=== PATIENT | male | born 1965 | race Two or more races ===

== ENCOUNTER → 2016-12-09 17:38 | Emergency (ER) | payer OTHER ==
--- NOTE | 2016-12-09 21:22 | ED ---
Laceration/Wound HPI - HPI Summary HPI Summary: 51M presents with right wrist laceration today. He was walking through a store and a piece of glass fell and landed on his arm. His tetanus is up to date. He has full ROM of his wrist. He denies any foreign body in his wrist. - History of Current Complaint Stated Complaint: RT WRIST LAC Time Seen by Provider: 12/09/16 20:40 Pain Intensity: 0 - Allergy/Home Medications Allergies/Adverse Reactions: Allergies Allergy/AdvReac Type Severity Reaction Status Date / Time No Known Allergies Allergy Verified 12/09/16 17:44 PMH/Surg Hx/FS Hx/Imm Hx Endocrine/Hematology History: Denies: Hx Anticoagulant Therapy EENT History: Denies: Hx Hearing Problem Infectious Disease History: Denies: Traveled Outside the [place] in Last 30 Days - Family History Known Family History: Positive: Hypertension - Social History Alcohol Use: None Substance Use Type: Reports: None Smoking Status (MU): Never Smoked Tobacco Review of Systems Negative: Fever Negative: Chest Pain Negative: Shortness Of Breath Positive: Other - right wrist laceration All Other Systems Reviewed And Are Negative: Yes Physical Exam Triage Information Reviewed: Yes Vital Signs On Initial Exam: Initial Vitals Temp Pulse Resp BP Pulse Ox 97.8 F 107 17 178/81 100 12/09/16 17:42 12/09/16 17:42 12/09/16 17:42 12/09/16 17:42 12/09/16 17:42 Vital Signs Reviewed: Yes Appearance: Positive: Well-Appearing Skin: Positive: Warm, Dry, Other - 3cm laceration of palmar aspect right wrist Head/Face: Positive: Normal Head/Face Inspection Eyes: Positive: Normal, Conjunctiva Clear Respiratory/Lung Sounds: Positive: Clear to Auscultation, Breath Sounds Present Cardiovascular: Positive: Normal, RRR Procedures - Laceration/Wound Repair 1 Location: Other - right wrist Description: Linear Anesthesia: Local, 1.0%, Epi Length, Depth and Shape: 3cm Betadine Prep?: Yes Irrigated w/ Saline (ccs): 50 Laceration/Wound Explored: clean, no foreign body removed Closure: Single Layer Suture Type: Prolene - 4-0 Number of Sutures: 3 Diagnostics - Vital Signs Vital Signs Temp Pulse Resp BP Pulse Ox 12/09/16 18:50 98.5 F 74 17 167/72 100 12/09/16 17:42 97.8 F 107 17 178/81 100 - Laboratory Lab Statement: Any lab studies that have been ordered have been reviewed, and results considered in the medical decision making process. Laceration Repair Course/Dx - Course Course Of Treatment: 51M presents with laceration to right wrist. denies any foreign body, cleaned area and placed 3 sutures in area. patient understands and agrees with plan - Differential Dx Differental Diagnoses: Abrasion, Avulsion, Laceration - Clinical Impression Provider Diagnoses: Laceration of right wrist Discharge - Discharge Plan Condition: Good Disposition: HOME Patient Education Materials: Care For Your Stitches (ED) Referrals: Non Staff,Doctor [Primary Care Provider] - Additional Instructions: Take Tylenol or ibuprofen for pain Keep area clean and dry for 48 hours Return to ED or primary in 10-14 days to have sutures removed Return to ED if develop signs of infection such as fever, spreading redness, or pus. Images - Images Hands: 1 - 3cm
[2016-12-09 22:20] VITALS: BP 140/73
== END | disposition home or self-care (01) ==
LOC: ED 17:38
DX: S61.511A Laceration without foreign body of right wrist, initial encounter (principal); W25.XXXA Contact with sharp glass, initial encounter; Y93.9 Activity, unspecified; Y92.512 Supermarket, store or market as the place of occurrence of the external cause
CPT/HCPCS: 99282

== ENCOUNTER 2018-02-08 11:21 | Emergency (ER) | payer OTHER ==
[2018-02-08 11:40] VITALS: BP 140/95
[2018-02-08] MEDS ORDERED: Albuterol/Ipratropium NEB.SOL* Albuterol 2.5 MG/Ipratropium 0.5 MG 3 ML INH ONE (12:16)
--- NOTE | 2018-02-08 12:27 | UC ---
Respiratory Complaint HPI - HPI Summary HPI Summary: cough and wheeze worsening, no fever, got SOB easily while moving furniture this weekend, denies Chest pain, no pedal edema, patient reports similar episode in 09/2017 dx with MYCOPLASMA rx with albuterol and zithromax---- patient has not tried his inhaler with this episode of illness---last travel [facility] was about 6 weeks ago - History of Current Complaint Chief Complaint: UCRespiratory Stated Complaint: COUGH WHEEZING Time Seen by Provider: 02/08/18 12:08 Hx Obtained From: Patient Onset/Duration: Sudden Onset, Lasting Days - 3, Still Present Timing: Constant Pain Intensity: 5 Pain Scale Used: 0-10 Numeric Character: Cough: Nonproductive Aggravating Factors: Exertion Alleviating Factors: Nothing Associated Signs And Symptoms: Positive: Dyspnea, URI. Negative: Calf Pain, Calf Swelling, Edema, Nasal Congestion, Hoarseness, Sinus Discomfort - Allergies/Home Medications Allergies/Adverse Reactions: Allergies Allergy/AdvReac Type Severity Reaction Status Date / Time No Known Allergies Allergy Verified 02/08/18 11:40 PMH/Surg Hx/FS Hx/Imm Hx Previously Healthy: Yes Other History Of: Negative For: Anticoagulant Therapy - Surgical History Surgical History: None - Family History Known Family History: Positive: Hypertension - Social History Occupation: Works From/At Home Lives: With Family Alcohol Use: None Substance Use Type: None Smoking Status (MU): Never Smoked Tobacco Review of Systems Constitutional: Negative Skin: Negative Eyes: Negative ENT: Negative Respiratory: Shortness Of Breath, Cough, Other - wheeze Cardiovascular: Negative Gastrointestinal: Negative Genitourinary: Negative Motor: Negative Neurovascular: Negative Musculoskeletal: Negative Neurological: Negative Psychological: Negative Is Patient Immunocompromised?: No All Other Systems Reviewed And Are Negative: Yes Physical Exam Triage Information Reviewed: Yes Appearance: Well-Appearing, No Pain Distress, Well-Nourished Vital Signs: Initial Vital Signs Temp 97.7 F 02/08/18 11:36 Pulse 96 02/08/18 11:36 Resp 16 02/08/18 11:36 BP 140/95 02/08/18 11:36 Pulse Ox 97 02/08/18 11:36 Vital Signs Reviewed: Yes Eye Exam: Normal Eyes: Positive: Conjunctiva Clear ENT Exam: Normal ENT: Positive: Normal ENT inspection, Hearing grossly normal, Pharynx normal - tongue is dry, TMs normal, Uvula midline. Negative: Nasal congestion, Tonsillar swelling, Trismus, Muffled voice, Hoarse voice, Dental tenderness, Sinus tenderness Dental Exam: Normal Neck exam: Normal Neck: Positive: Supple, Nontender, No Lymphadenopathy Respiratory Exam: Normal Respiratory: Positive: Chest non-tender, No respiratory distress, No accessory muscle use, Wheezing Cardiovascular Exam: Normal Cardiovascular: Positive: RRR, No Murmur, Pulses Normal, Brisk Capillary Refill , Other: - patient is concerned as HR is usually about 60 and he has noted it to be 90-100 with this illness Musculoskeletal Exam: Normal Musculoskeletal: Positive: Strength Intact, ROM Intact, No Edema Neurological Exam: Normal Neurological: Positive: Alert, Muscle Tone Normal Psychological Exam: Normal Skin Exam: Normal UC Diagnostic Evaluation - Laboratory O2 Sat by Pulse Oximetry: 97 - Radiology Xray Interpretation: No Acute Changes Radiology Interpretation Completed By: ED Physician, Radiologist - No active disease - EKG Cardiac Rate: NL Cardiac Rhythm: Sinus: Normal Ectopy: None ST Segment: Normal Re-Evaluation - Re-Evaluation First Eval Change: Improved - wheeze resolved--feeling much better after neb Respiratory Course/Dx - Course Course Of Treatment: albuterol with spacer q4 h prn cough / wheeze, zithromax, increase fluids rest follow with pcp prn - Differential Dx/Diagnosis Provider Diagnoses: Bronchitis with acute Bronchospasm Discharge - Sign-Out/Discharge Documenting (check all that apply): Discharge/Admit/Transfer - Discharge Plan Condition: Stable Disposition: HOME Prescriptions: Albuterol HFA INHALER* [Ventolin HFA Inhaler*] 2 puff INH Q4H PRN #1 mdi PRN Reason: Cough Azithromycin TAB* [Zithromax TAB (Z-NICKOLAS) 250 mg #6 tabs] 2 tab PO .TODAY, THEN 1 DAILY #1 nickolas Patient Education Materials: Acute Bronchitis (ED), Hypertension (ED), Bronchospasm (ED) Referrals: Ashlee Constantino MD [Primary Care Provider] - 1 Week - Billing Disposition and Condition Condition: STABLE Disposition: Home
--- NOTE | 2018-02-08 12:48 | RAD ---
Indication: Shortness of breath, wheezing. 2 views of the chest including dual energy PA views demonstrate no mediastinal shift. Heart is of normal size and configuration. Lung mendieta are clear. No alveolar consolidation is noted. IMPRESSION: No active cardiopulmonary disease is noted.
== END 2018-02-08 13:03 | disposition home or self-care (01) ==
LOC: UCEAST 11:21
DX: J20.9 Acute bronchitis, unspecified (principal); Z82.49 Family history of ischemic heart disease and other diseases of the circulatory system
CPT/HCPCS: 71046; 93005; 99212; A9270-GY; G0463

== ENCOUNTER 2019-03-16 17:33 | Emergency (ER) | payer OTHER ==
--- NOTE | 2019-03-16 18:16 | UC ---
Laceration HPI - HPI Summary HPI Summary: 54 yo male presents with left little finger laceration 2 days ago. He tells me that he was using a sawblade and it slipped and he sustained a small laceration to his distal left 5th digit. He cleansed the area and bandaged it with a band- aid. He is concerned today for infection and because his last tetanus was in 2011. Denies fever, drainage, or increased pain - History Of Current Complaint Stated Complaint: FINGER LACERATION Time Seen by Provider: 03/16/19 18:16 Hx Obtained From: Patient Laceration Location: Finger Mechanism Of Injury: Sharp Trauma Onset/Duration: Sudden Onset Severity: Mild Pain Intensity: 1 Pain Scale Used: 0-10 Numeric - Allergies/Home Medications Allergies/Adverse Reactions: Allergies Allergy/AdvReac Type Severity Reaction Status Date / Time seafood Allergy Difficulty Uncoded 03/16/19 18:20 Breathing Home Medications: Home Medications Ibuprofen 1 tab PO ONCE PRN 03/16/19 [History Confirmed 03/16/19] PMH/Surg Hx/FS Hx/Imm Hx Respiratory History: Asthma Other History Of: Negative For: Anticoagulant Therapy - Surgical History Surgical History: None - Family History Known Family History: Positive: Hypertension - Social History Lives: With Family Alcohol Use: None Substance Use Type: None Smoking Status (MU): Never Smoked Tobacco Review of Systems All Other Systems Reviewed And Are Negative: Yes Constitutional: Positive: Negative Skin: Positive: Other - left 5th digit laceration Respiratory: Positive: Negative Cardiovascular: Positive: Negative Neurovascular: Positive: Negative Neurological: Positive: Negative Psychological: Positive: Negative Physical Exam - Summary Physical Exam Summary: GENERAL: NAD. WDWN. No pain distress. SKIN: Left 5th digit: distal hayes with 4mm skin avulsion with scab in place. NTTP. No bleeding, drainage, or nail avulsion. CHEST: No accessory muscle use. Breathing comfortably and in no distress. CV: Pulses intact. Cap refill <2seconds NEURO: Alert. PSYCH: Age appropriate behavior. Triage Information Reviewed: Yes Vital Signs: Vital Signs: Temp Pulse Resp BP Pulse Ox 98.3 F 79 18 145/85 97 03/16/19 18:15 03/16/19 18:15 03/16/19 18:15 03/16/19 18:15 03/16/19 18:15 Vital Signs Reviewed: Yes Laceration Course/Dx - Course/Dx Course Of Treatment: The wound was cleansed with NS. tdap updated today. Bandaged with a band-aid and triple anbx ointment. Advised to apply anbx ointment and change dressing daily until well healed - Diagnosis Provider Diagnosis: Laceration of left little finger Discharge - Sign-Out/Discharge Documenting (check all that apply): Patient Departure All imaging exams completed and their final reports reviewed: No Studies - Discharge Plan Condition: Stable Disposition: HOME Patient Education Materials: Diphtheria/Pertussis/Tetanus Vaccine (By injection ), Laceration (ED) Referrals: Ashlee Constantino MD [Primary Care Provider] - Additional Instructions: If you develop a fever, shortness of breath, chest pain, new or worsening symptoms - please call your PCP or go to the ED immediately. Your blood pressure was slightly elevated at todays visit. Please see your primary provider within 4 weeks for recheck and re-evaluation. Your tetanus shot was updated today. Apply an over the counter antibiotic cream daily and keep covered with a band- aid until well healed. Change the dressing daily - Billing Disposition and Condition Condition: STABLE Disposition: Home
[2019-03-16 18:20] VITALS: BP 145/85
[2019-03-16] MEDS ORDERED: Tetan/Diph/Pertus SYR(Tdap)* 0.5 ML SYR(BOOSTRIX) use SYR IM ONE (18:22)
== END 2019-03-16 18:36 | disposition home or self-care (01) ==
LOC: UCEAST 17:33
DX: S61.217A Laceration without foreign body of left little finger without damage to nail, initial encounter (principal); W31.2XXA Contact with powered woodworking and forming machines, initial encounter; Y92.9 Unspecified place or not applicable; J45.909 Unspecified asthma, uncomplicated
CPT/HCPCS: 90471; 90715; 99211; G0463

== ENCOUNTER 2019-08-17 16:07 | Emergency (ER) | payer OTHER ==
[2019-08-17] MEDS ORDERED: Albuterol 2.5 MG/3 ML NEB.SOL* (0.083%) INH ONE (17:50)
[2019-08-17] MEDS ORDERED: Ipratropium 0.5MG/2.5ML NEB* 0.5 MG/2.5 ML NEB.SOLN INH ONE (17:50)
--- NOTE | 2019-08-17 18:09 | UC ---
Respiratory Complaint HPI - HPI Summary HPI Summary: 54 yo male with cough and wheezing x 2 weeks getting progressive worse no sinus symptoms today GRIJALVA with cough no CP today some dysnea hx of bronchits requiring inhaler hx of pneumonia - History of Current Complaint Chief Complaint: UCRespiratory Stated Complaint: COUGH,WHEEZING SOB Time Seen by Provider: 08/17/19 17:44 Onset/Duration: Gradual Onset, Lasting Days Timing: Constant Severity Initially: Mild Severity Currently: Moderate Pain Intensity: 7 Pain Scale Used: 0-10 Numeric Character: Cough: Nonproductive Aggravating Factors: Exertion, Deep Breaths Alleviating Factors: Nothing Associated Signs And Symptoms: Positive: Dyspnea, Wheezing - Allergies/Home Medications Allergies/Adverse Reactions: Allergies Allergy/AdvReac Type Severity Reaction Status Date / Time seafood Allergy Difficulty Uncoded 08/17/19 17:33 Breathing Home Medications: Home Medications D-Methorphan/PE/Acetaminophen [Cold Multi-Symptom Daytim] 1 tab PO PRN 08/17/19 [History] PMH/Surg Hx/FS Hx/Imm Hx Previously Healthy: Yes Respiratory History: Bronchitis, Pneumonia Other History Of: Negative For: Anticoagulant Therapy - Surgical History Surgical History: None - Family History Known Family History: Positive: Hypertension - Social History Alcohol Use: None Substance Use Type: None Smoking Status (MU): Never Smoked Tobacco Review of Systems All Other Systems Reviewed And Are Negative: Yes Constitutional: Positive: Negative Skin: Positive: Negative Eyes: Positive: Negative ENT: Positive: Negative Respiratory: Positive: Cough, Other Cardiovascular: Positive: Negative Gastrointestinal: Positive: Negative Genitourinary: Positive: Negative Motor: Positive: Negative Neurovascular: Positive: Negative Musculoskeletal: Positive: Negative Neurological: Positive: Negative Psychological: Positive: Negative Physical Exam Triage Information Reviewed: Yes Appearance: Well-Appearing, No Pain Distress, Well-Nourished Vital Signs: Initial Vital Signs Temp 98.7 F 08/17/19 17:34 Pulse 86 08/17/19 17:34 Resp 24 08/17/19 17:34 BP 146/94 08/17/19 17:34 Pulse Ox 95 08/17/19 17:34 Vital Signs Reviewed: Yes Eyes: Positive: Conjunctiva Clear ENT: Positive: Hearing grossly normal, Uvula midline. Negative: Nasal congestion, Nasal drainage, Tonsillar swelling, Tonsillar exudate, Trismus, Muffled voice, Dental tenderness Neck: Positive: Supple, Nontender, No Lymphadenopathy Respiratory: Positive: Wheezing. Negative: Respiratory distress, Accessory muscle use Cardiovascular: Positive: RRR, No Murmur Musculoskeletal: Positive: ROM Intact, No Edema Neurological: Positive: Alert Psychological Exam: Normal Skin Exam: Normal Re-Evaluation - Re-Evaluation First Eval Re-Evaluation Time: 18:47 Change: Improved - still wheezing but much improved Respiratory Course/Dx - Course Course Of Treatment: refuses CXR - Differential Dx/Diagnosis Provider Diagnosis: Acute bronchospasm, Elevated BP without diagnosis of hypertension Discharge ED - Sign-Out/Discharge Documenting (check all that apply): Patient Departure All imaging exams completed and their final reports reviewed: No Studies - Discharge Plan Condition: Stable Disposition: HOME Patient Education Materials: Bronchospasm (ED), How to Use a Breath-Activated Inhaler (ED) Referrals: Shun Wheeler MD [Medical Doctor] - 2 Weeks Ashlee Constantino MD [Primary Care Provider] - 2 Weeks (recheck in 2-8 weeks ( need BP rechecked)) Additional Instructions: recheck if not better in 4-5 days to ER for worsening symptoms - Billing Disposition and Condition Condition: STABLE Disposition: Home
[2019-08-17] MEDS ORDERED: Albuterol HFA INHALER* 8 gm MDI INH ONE (18:52)
[2019-08-17 19:15] VITALS: BP 130/96
== END 2019-08-17 19:15 | disposition home or self-care (01) ==
LOC: UCCORT 16:07
DX: J98.01 Acute bronchospasm (principal); R03.0 Elevated blood-pressure reading, without diagnosis of hypertension; R51 Headache; Z87.01 Personal history of pneumonia (recurrent); Z91.013 Allergy to seafood
CPT/HCPCS: 99213; A9270-GY; G0463; J7512